=== PATIENT | female | born 1995 | race Caucasian/White ===

== ENCOUNTER 2021-10-17 18:01 | Emergency (ER) | payer OTHER ==
[~2021-10-17] VITALS: Ht 152.4 cm; Wt 49.9 kg
[2021-10-17 18:04] VITALS: BP 118/72
--- NOTE | 2021-10-17 18:08 | NUR ---
PT SEEN AND EXAMINED BY .
--- NOTE | 2021-10-17 19:00 | NUR ---
IRENA WRAP APPLIED BY [employer]LL[employer] SUPERVISOR.
--- NOTE | 2021-10-17 19:05 | NUR ---
Patient discharged to home in stable condition. Written and verbal after care instructions given. Patient verbalizes understanding of instruction.
== END 2021-10-17 19:06 | disposition home or self-care (01) ==
LOC: ER 18:04
DX: S93.491A Sprain of other ligament of right ankle, initial encounter (principal); X50.1XXA Overexertion from prolonged static or awkward postures, initial encounter; Y93.39 Activity, other involving climbing, rappelling and jumping off; Y92.89 Other specified places as the place of occurrence of the external cause; Y99.0 Civilian activity done for income or pay
CPT/HCPCS: 73610-TC